=== PATIENT | female | born 1980 | race Caucasian/White ===

== ENCOUNTER 2025-03-03 09:17 | Inpatient (IN) | payer OTHER ==
[2025-03-03 10:02] VITALS: BMI 32.9
[2025-03-03] MEDS ORDERED: LOPERAMIDE HCL 2 MG CAPSULE PO PRN (11:16)
[2025-03-03] MEDS ORDERED: IBUPROFEN 400 MG TABLET (FP) PO PRN (11:16)
[2025-03-03] MEDS ORDERED: BENZONATATE 200 MG CAPSULE PO PRN (11:16)
[2025-03-03] MEDS ORDERED: DICYCLOMINE HCL 10 MG CAPSULE PO PRN (11:16)
[2025-03-03] MEDS ORDERED: ONDANSETRON *ODT* 4 MG TABLET SL PRN (11:16)
[2025-03-03] MEDS ORDERED: guaiFENesin 600 MG TABLET.ER (FP) PO PRN (11:16)
[2025-03-03] MEDS ORDERED: MAGNESIUM HYDROX 2400MG/30ML ORAL SUSPENSION 30 ML CUP PO PRN (11:16)
[2025-03-03] MEDS ORDERED: BISMUTH SUBSALICYLATE 524 MG/30 ML PO PRN (11:16)
[2025-03-03] MEDS ORDERED: BENZOCAINE/MENTHOL (CHLORASEPTIC ) LOZENGE MM PRN (11:16)
[2025-03-03] MEDS ORDERED: POLYETHYLENE GLYCOL (HEALTHYLAX) 3350 17 GM PACKET PO PRN (11:16)
[2025-03-03] MEDS ORDERED: NALOXONE (NARCAN) HCL 4 MG/0.1 ML SPRAY NS PRN (11:16)
[2025-03-03] MEDS: NIFEdipine E.R. 90 MG TABLET PO SCH (12:17)
[2025-03-03] MEDS: ACETAMINOPHEN 325 MG TABLET (FP) PO PRN (12:37)
[2025-03-03] MEDS: hydrOXYzine PAMOATE 25 MG CAPSULE (FP) PO PRN (14:00)
[2025-03-03] MEDS: IBUPROFEN 600 MG TABLET (FP) PO PRN (22:08)
[2025-03-03] MEDS: THIAMINE 100 MG TABLET PO SCH (22:08)
[2025-03-03] MEDS: METHOCARBAMOL 500 MG TABLET PO PRN (22:08)
[2025-03-03] MEDS: MELATONIN 5 MG TABLETS PO SCH (22:09)
[2025-03-03] MEDS: METOPROLOL TARTRATE 25 MG TABLET (FP) PO SCH (22:09)
[2025-03-04] MEDS ORDERED: PATIENT'S OWN MEDICATION (NON-FORMULARY) (Nifedipine [Nifedipine Er] 90 MG Tablet.Er) PO SCH (10:00)
[2025-03-04] MEDS: PRENATAL VITAMINS W/ FOLIC ACID TABLET (FP) PO SCH (10:21)
[2025-03-04 12:37] LABS: MCHC 32.2 g/dl (32.2-35.5); MEAN CELL VOLUME 91.8 fl (79.4-94.8); MEAN PLT VOLUME 11.9 fl (9.4-12.3); RDW 16.0 % (12.2-17.1)
[2025-03-04 13:15] LABS: GLUCOSE,RANDOM 95 mg/dL (74-106)
[2025-03-04 13:16] LABS: CO2 28 mmol/L (21-32); TOT PROT 6.9 g/dl (6.4-8.2)
[2025-03-04 13:18] LABS: ALK PHOS 62 U/L (40-150)
[2025-03-04 13:21] LABS: CREATININE 0.75 mg/dL (0.55-1.3); SGOT/AST 40 U/L (5-34); SGPT/ALT 35 U/L (0-55)
[2025-03-04] MEDS: POTASSIUM CHLORIDE ORAL LIQUID 20 MEQ/15 ML PO ONE ×2 (14:50→17:47)
[2025-03-04] MEDS: MAG HYDROX/AL HYDROX/SIMETH 30 ML UNIT-DOSE CUP PO PRN (19:20)
[2025-03-04] MEDS: traZODone HCL 50 MG TABLET (FP) PO SCH (22:59)
[2025-03-05 09:34] VITALS: BP 94/57; PULSE 92; RESP 16; TEMP 97.3
[2025-03-05] MEDS: PANTOPRAZOLE 20 MG TABLET PO SCH (10:06)
[2025-03-05] MEDS: FERROUS SO4 325 MG TABLET (FP) PO SCH (10:06)
[2025-03-05] MEDS: NIFEdipine E.R. 90 MG TABLET PO SCH (10:07)
== END 2025-03-05 12:25 | disposition home or self-care (01) | DRG 775 ==
LOC: YASAS 09:17 → Y3N 12:04
PROVIDERS: ADMIT Psychiatry & Neurology Pain Medicine; ATTEND Allergy & Immunology
PROC: HZ2ZZZZ Detoxification Services for Substance Abuse Treatment (ICD-10-PCS; principal; 2025-03-03)
DX: F10.230 Alcohol dependence with withdrawal, uncomplicated (principal); F32.A Depression, unspecified; F41.9 Anxiety disorder, unspecified; E87.6 Hypokalemia; I10 Essential (primary) hypertension; K21.9 Gastro-esophageal reflux disease without esophagitis
CPT/HCPCS: 36415; 80053; 80307; 84132; 85027; 86780; 93005; 93010